=== PATIENT | male | born 1975 | race Caucasian/White ===

== ENCOUNTER 2017-08-03 18:29 | Emergency (ER) | payer OTHER ==
[~2017-08-03] VITALS: Ht 175.3 cm; Wt 71.7 kg
[2017-08-03] MEDS ORDERED: IBUPROFEN 600600 M1 PO (18:40)
[2017-08-03 19:23] LABS: INFLUENZA B ANTIGEN None Detected (None Detect)
[2017-08-03] MEDS ORDERED: TESSALON PERLE100 MG PO (19:27)
[2017-08-03] MEDS ORDERED: PREDNISONE 10 M10 MG PO (19:27)
[2017-08-03] MEDS ORDERED: VENTOLIN HFA 1818 GM INH (19:27)
[2017-08-03] MEDS ORDERED: OSELB75 PO (19:27)
[2017-08-03 19:39] VITALS: BP 121/77
== END 2017-08-03 19:40 | disposition home or self-care (01) ==
LOC: M.ERS 18:29
PROVIDERS: Physician Assistant
DX: J09.X2 Influenza due to identified novel influenza A virus with other respiratory manifestations (principal); F17.200 Nicotine dependence, unspecified, uncomplicated

== ENCOUNTER 2017-11-22 05:30 | Emergency (ER) | payer OTHER ==
[~2017-11-22] VITALS: Ht 175.3 cm; Wt 76.2 kg
[~2017-11-22 05:30] MED LIST: IBUPROFEN 600600 M1 PO; OSELB75 PO; PREDNISONE 10 M10 MG PO; TESSALON PERLE100 MG PO; VENTOLIN HFA 1818 GM INH
[2017-11-22] MEDS ORDERED: LIORESAL 10 MG10 MG PO (05:52)
[2017-11-22] MEDS ORDERED: FLEXERIL PO (05:52)
[2017-11-22] MEDS ORDERED: IBUPROFEN 800800 MG PO (05:52)
[2017-11-22 06:24] VITALS: BP 119/86
== END 2017-11-22 06:25 | disposition home or self-care (01) ==
LOC: M.ERS 05:30
DX: M54.5 Low back pain (principal); F17.200 Nicotine dependence, unspecified, uncomplicated; Z88.5 Allergy status to narcotic agent; Z88.6 Allergy status to analgesic agent